=== PATIENT | male | born 1940 | race Caucasian/White ===

== ENCOUNTER 2017-11-18 09:26 | Emergency (ER) | payer BC ==
[~2017-11-18] VITALS: Ht 182.9 cm; Wt 111.0 kg
[~2017-11-18 09:26] MED LIST: ALBU1AER INH; AMBI5TAB PO; ASPI81TA82 PO; ATEN1TAB73 PO; BACT800T5 PO; CIAL5TAB PO; ENAL5TAB98 PO; FEXO180 PO; FLOV110A IN; MONT10TA2 PO; ROSU40 PO; SUCR1TAB PO; TAMS0.4C4 PO
[2017-11-18 09:52] VITALS: BP 152/77; PULSE 84; RESP 16; TEMP 97.4; O2SAT 96
[2017-11-18 10:05] VITALS: O2SAT 97
[2017-11-18] MEDS ORDERED: OXYMETAZOLINE HCL 0.05% 15 ML NASAL SPRAY NASAL ONE (10:15)
[2017-11-18] MEDS ORDERED: SODIUM CHLORIDE 0.9% FLUSH 10 ML FLUSH IVF PRN (10:15)
[2017-11-18] MEDS ORDERED: CIAL10TA PO (10:37)
[2017-11-18] MEDS ORDERED: ROSU20 PO (10:37)
[2017-11-18] MEDS ORDERED: FLUTI110I INH (10:37)
[2017-11-18] MEDS ORDERED: ZOLP5TAB3 PO (10:37)
[2017-11-18] MEDS ORDERED: PROS5TAB PO (10:37)
[2017-11-18] MEDS ORDERED: MONT10TA4 PO (10:37)
[2017-11-18] MEDS ORDERED: FEXO15TA PO (10:37)
[2017-11-18] MEDS ORDERED: TAMS0.4C4 PO (10:37)
[2017-11-18] MEDS ORDERED: ENAL5TAB PO (10:37)
[2017-11-18] MEDS ORDERED: ASPI-516 CHEW (10:37)
[2017-11-18] MEDS ORDERED: SUCR1TAB PO (10:37)
[2017-11-18 10:40] LABS: AUTOMATED NEUTROPHIL # 3.7 TH/MM3 (1.8-7.7); BASOPHIL # 0.1 TH/MM3 (0-0.2); BASOPHIL % 0.9 % (0.0-2.0); EOSINOPHIL # 0.1 TH/MM3 (0-0.4); HEMATOCRIT 45.5 % (39.0-51.0); HEMOGLOBIN 14.8 GM/DL (13.0-17.0); LYMPH % 34.5 % (9.0-44.0); LYMPHOCYTE # 2.4 TH/MM3 (1.0-4.8); MEAN CELL VOLUME 83.4 FL (80.0-100.0); MEAN CORPUSCULAR HEMOGLOBIN 27.1 PG (27.0-34.0); MEAN CORPUSCULAR HGB CONC 32.5 % (32.0-36.0); MEAN PLATELET VOLUME 7.9 FL (7.0-11.0); MONO % 9.4 % (0.0-8.0); MONOCYTE # 0.6 TH/MM3 (0-0.9); NEUT % 54.2 % (16.0-70.0); PLATELET COUNT 190 TH/MM3 (150-450); RED BLOOD COUNT 5.45 MIL/MM3 (4.50-5.90); RED CELL DISTRIBUTION WIDTH 13.6 % (11.6-17.2); WHITE BLOOD COUNT 6.9 TH/MM3 (4.0-11.0)
[2017-11-18 10:52] LABS: BICARBONATE 26.1 MEQ/L (21.0-32.0); CALCIUM 9.8 MG/DL (8.5-10.1)
[2017-11-18 10:56] LABS: CREATININE 1.1 MG/DL (0.60-1.30)
[2017-11-18 11:07] VITALS: BP 133/72; PULSE 74; RESP 18; O2SAT 96
--- NOTE | 2017-11-18 11:42 | PD ---
HPI Chief Complaint: ENT Complaint Time Seen by Provider: 09:58 Travel History International Travel<30 days: No Contact w/Intl Traveler<30days: No Traveled to known affect area: No History of Present Illness HPI This is a 77-year-old male who presents for epistaxis. He states about an hour ago, he developed bleeding from the right side of his nose after blowing his nose. His states that he uses a CPAP machine at night and often does not put any water into the reservoir. He has been otherwise well recently without fever, chills, cough, congestion, vomiting, diarrhea. No difficulty breathing, speaking, swallowing. No other abnormal bleeding or bruising. Symptoms are mild in severity. Prior treatment includes tissue paper to the right naris. PFSH Past Medical History Hx Anticoagulant Therapy: Yes (asa 81mg) Asthma: Yes Cancer: Yes (CLL) Cardiovascular Problems: Yes (htn on meds, [place] with 2 stents) High Cholesterol: Yes Chemotherapy: Yes Diminished Hearing: Yes GERD: Yes Hypertension: Yes Respiratory: Yes (ASTHMA) Immunizations Current: Yes Myocardial Infarction: Yes (2002) Tetanus Vaccination: > 5 Years Influenza Vaccination: Yes Past Surgical History Coronary Stent: Yes (3X 2002) Other Surgery: Yes (port r chest used 3 mo ago September 2017)) Social History Alcohol Use: Yes (2 dly wine) Tobacco Use: No Substance Use: No Allergies-Medications (Allergen,Severity, Reaction): Coded Allergies: No Known Allergies (Unverified Adverse Reaction, Unknown, 11/18/17) Reported Meds & Prescriptions Reported Meds & Active Scripts Active Reported Aspirin 81 Mg Chew 81 Mg CHEW DAILY Nandini Allergy (Fexofenadine HCl) 180 Mg Tab 180 Mg PO DAILY Flovent Hfa 12 GM Inh (Fluticasone Propionate) 110 Mcg/Act Inh 2 Puff INH BID Montelukast (Montelukast Sodium) 10 Mg Tab 10 Mg PO HS Enalapril (Enalapril Maleate) 5 Mg Tab 5 Mg PO DAILY Cialis (Tadalafil) 10 Mg Tab 10 Mg PO DAILY PRN Do not exceed 1 dose/day. Crestor (Rosuvastatin Calcium) 20 Mg Tab 20 Mg PO DAILY Tamsulosin (Tamsulosin HCl) 0.4 Mg Cap 0.8 Mg PO DAILY Proscar (Finasteride) 5 Mg Tab 5 Mg PO DAILY Do not crush. Sucralfate 1 Gram Tab 1 Gm PO BID on empty stomach Zolpidem (Zolpidem Tartrate) 5 Mg Tab 5 Mg PO HS PRN Review of Systems Except as stated in HPI: all other systems reviewed are Neg Physical Exam Narrative GENERAL: Alert, well nourished, well appearing patient resting on the bed in no acute distress. Vital Signs reviewed SKIN: Focused skin assessment warm/dry. HEAD: Atraumatic. Normocephalic. EYES: Pupils equal and round. No scleral icterus. No injection or drainage. ENT: Mucous membranes pink and moist. Small amount of bright red blood in right naris. No active bleeding seen in left naris. NECK: Trachea midline. No JVD. Spontaneous, painless full range of motion with no meningismus CARDIOVASCULAR: Regular rate and rhythm. No murmur appreciated. Extremities warm and well perfused with bounding peripheral pulses RESPIRATORY: No accessory muscle use. Clear to auscultation. Breath sounds equal bilaterally. Breathing easily and speaking in full sentences GASTROINTESTINAL: Abdomen soft, non-tender, nondistended. Normal bowel sounds. No rigid, rebound, guarding MUSCULOSKELETAL: No obvious deformities. No clubbing. No cyanosis. No edema. Compartments are soft NEUROLOGICAL: Awake and alert. No obvious cranial nerve deficits. Motor grossly within normal limits. Normal speech. Sensation intact. Normal gait Data Data Last Documented VS Vital Signs Date Time Temp Pulse Resp B/P (MAP) Pulse Ox O2 Delivery O2 Flow Rate FiO2 11/18/17 11:07 74 18 133/72 (92) 96 Room Air 11/18/17 09:52 97.4 Orders Orders Basic Metabolic Panel (Bmp) (11/18/17 10:03) Complete Blood Count With Diff (11/18/17 10:03) Prothrombin Time / Inr (Pt) (11/18/17 10:03) Act Partial Throm Time (Ptt) (11/18/17 10:03) Iv Access Insert/Monitor (11/18/17 10:03) Oximetry (11/18/17 10:03) Sodium Chloride 0.9% Flush (Ns Flush) (11/18/17 10:15) Oxymetazoline 0.05% Mahesh [place] (Afrin 0.0 (11/18/17 10:15) Ed Discharge Order (11/18/17 11:42) Labs Laboratory Tests Test 11/18/17 10:25 White Blood Count 6.9 TH/MM3 Red Blood Count 5.45 MIL/MM3 Hemoglobin 14.8 GM/DL Hematocrit 45.5 % Mean Corpuscular Volume 83.4 FL Mean Corpuscular Hemoglobin 27.1 PG Mean Corpuscular Hemoglobin Concent 32.5 % Red Cell Distribution Width 13.6 % Platelet Count 190 TH/MM3 Mean Platelet Volume 7.9 FL Neutrophils (%) (Auto) 54.2 % Lymphocytes (%) (Auto) 34.5 % Monocytes (%) (Auto) 9.4 % Eosinophils (%) (Auto) 1.0 % Basophils (%) (Auto) 0.9 % Neutrophils # (Auto) 3.7 TH/MM3 Lymphocytes # (Auto) 2.4 TH/MM3 Monocytes # (Auto) 0.6 TH/MM3 Eosinophils # (Auto) 0.1 TH/MM3 Basophils # (Auto) 0.1 TH/MM3 CBC Comment DIFF FINAL Differential Comment Prothrombin Time 10.0 SEC Prothromb Time International Ratio 1.0 RATIO Activated Partial Thromboplast Time 24.5 SEC Blood Urea Nitrogen 22 MG/DL Creatinine 1.10 MG/DL Random Glucose 104 MG/DL Calcium Level 9.8 MG/DL Sodium Level 136 MEQ/L Potassium Level 4.3 MEQ/L Chloride Level 103 MEQ/L Carbon Dioxide Level 26.1 MEQ/L Anion Gap 7 MEQ/L Estimat Glomerular Filtration Rate 65 ML/MIN [facility] Medical Decision Making Medical Screen Exam Complete: Yes Emergency Medical Condition: Yes Medical Record Reviewed: Yes Interpretation(s) Laboratory Tests Test 11/18/17 10:25 White Blood Count 6.9 TH/MM3 Red Blood Count 5.45 MIL/MM3 Hemoglobin 14.8 GM/DL Hematocrit 45.5 % Mean Corpuscular Volume 83.4 FL Mean Corpuscular Hemoglobin 27.1 PG Mean Corpuscular Hemoglobin Concent 32.5 % Red Cell Distribution Width 13.6 % Platelet Count 190 TH/MM3 Mean Platelet Volume 7.9 FL Neutrophils (%) (Auto) 54.2 % Lymphocytes (%) (Auto) 34.5 % Monocytes (%) (Auto) 9.4 % Eosinophils (%) (Auto) 1.0 % Basophils (%) (Auto) 0.9 % Neutrophils # (Auto) 3.7 TH/MM3 Lymphocytes # (Auto) 2.4 TH/MM3 Monocytes # (Auto) 0.6 TH/MM3 Eosinophils # (Auto) 0.1 TH/MM3 Basophils # (Auto) 0.1 TH/MM3 CBC Comment DIFF FINAL Differential Comment Prothrombin Time 10.0 SEC Prothromb Time International Ratio 1.0 RATIO Activated Partial Thromboplast Time 24.5 SEC Blood Urea Nitrogen 22 MG/DL Creatinine 1.10 MG/DL Random Glucose 104 MG/DL Calcium Level 9.8 MG/DL Sodium Level 136 MEQ/L Potassium Level 4.3 MEQ/L Chloride Level 103 MEQ/L Carbon Dioxide Level 26.1 MEQ/L Anion Gap 7 MEQ/L Estimat Glomerular Filtration Rate 65 ML/MIN Differential Diagnosis Epistaxis, anterior versus posterior bleeding, coagulopathy, thrombocytopenia Narrative Course The patient cleared the blood from his nose. Afrin was instilled. Direct pressure was applied. The patient was reexamined multiple times in the emergency department. Upon reexamination at 11:40 AM: He is resting comfortably on the bed with no active bleeding. We discussed options. Patient would like to avoid nasal packing which I think is reasonable at this time. Plan for discharge with supportive care, nasal saline spray, humidifying the air in his CPAP, nasal emollient, direct pressure for epistaxis and close outpatient follow-up with primary physician and ENT as needed. Patient understands he may require further testing and treatment as an outpatient. He understands strict return indications. He is comfortable with this plan and eager to be discharged. Diagnosis Primary Impression: Epistaxis Referrals: Roe Rubio MD 2 days Primary Care Physician 2 days Patient Instructions: Epistaxis (DC), General Instructions Additional Instructions: Drink plenty of fluids to stay well-hydrated. Do not blow your nose for at least the next 2 days. Use nasal saline spray at least twice a day. Use nasal emollient as directed. Follow up with ENT as needed. Return with worsening symptoms. IF YOUR NOSE STARTS TO BLEED, HOLD DIRECT PRESSURE FOR 10 MINUTES. Ok to use Afrin for 2 days as needed. Med/Other Pt SpecificInfo: No Change to Meds Disposition: 01 DISCHARGE HOME Condition: Stable Jazlyn Olivaerz MD Nov 18, 2017 11:42
[2017-11-18 12:02] VITALS: BP 130/76
== END 2017-11-18 12:03 | disposition home or self-care (01) ==
LOC: PHED 09:26
DX: R04.0 Epistaxis (principal); J45.909 Unspecified asthma, uncomplicated; E78.00 Pure hypercholesterolemia, unspecified; I10 Essential (primary) hypertension; I25.2 Old myocardial infarction; Z95.5 Presence of coronary angioplasty implant and graft; Z79.82 Long term (current) use of aspirin
CPT/HCPCS: 80048; 85025; 85610; 85730; 99283